=== PATIENT | female | born 1985 | race Caucasian/White ===

== ENCOUNTER 2016-12-06 21:07 | Emergency (ER) | payer OTHER ==
[~2016-12-06] VITALS: Ht 172.7 cm; Wt 98.0 kg
[~2016-12-06 21:07] MED LIST: ACYC1CAP16 PO; CEPH500 PO; NAPR500 PO; PRENTAB50 OR; PROZ20CA11 PO; RANI150 PO; ZOFR4TAB3 SL
[2016-12-06 21:15] VITALS: BP 139/91; PULSE 108; RESP 18; TEMP 98.5; O2SAT 97
[2016-12-06] MEDS ORDERED: ONDANSETRON HCL 4 MG/2 ML VIAL IV PUSH ONE (21:30)
[2016-12-06] MEDS ORDERED: SODIUM CHLOR 0.9% 1000 ML INJ 1,000 ML IV ONE (21:30)
--- NOTE | 2016-12-06 21:32 | PD ---
HPI Chief Complaint: Abdominal Pain Time Seen by Provider: 21:22 Travel History International Travel<30 days: No Contact w/Intl Traveler<30days: No Traveled to known affect area: No History of Present Illness HPI This 31-year-old female says she's been sick for a couple of days. She's been having some vomiting and some epigastric discomfort. She says it feels a lot like when she had gallbladder attacks but she's had a cholecystectomy. She has had a tubal ligation. She was having symptoms throughout the day today. Tonight she urinated and saw blood in the urine. She has a history of urinary tract infections. She has been having a lot of back pain. 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") Neurologic: No Reproductive: No Respiratory: No Immunizations Current: No : 3 Para: 3 Tubal Ligation: Yes Past Surgical History Section: Yes Cholecystectomy: Yes Other Surgery: No Social History Alcohol Use: No Tobacco Use: Yes Substance Use: No Allergies-Medications (Allergen,Severity, Reaction): Coded Allergies: No Known Allergies (Verified , 12/06/16) Reported Meds & Prescriptions Reported Meds & Active Scripts Active Reported Zantac (Ranitidine HCl) 150 Mg Tab 150 Mg PO BID Prozac (Fluoxetine HCl) 20 Mg Cap 20 Mg PO DAILY Review of Systems General / Constitutional: No: Fever, Chills Eyes: No: Diploplia HENT: No: Headaches, Vertigo Cardiovascular: No: Chest Pain or Discomfort, Palpitations Gastrointestinal: Positive: Nausea, Vomiting, Diarrhea, Abdominal Pain Genitourinary: No: Frequency, Dysuria Musculoskeletal: Positive: Myalgias, Pain Skin: No Rash, No Itching Physical Exam Narrative GENERAL: Well-developed female SKIN: Focused skin assessment warm/dry. HEAD: Atraumatic. Normocephalic. EYES: Pupils equal and round. No scleral icterus. No injection or drainage. ENT: No nasal bleeding or discharge. Mucous membranes pink and moist. NECK: Trachea midline. No JVD. CARDIOVASCULAR: Regular rate and rhythm. No murmur appreciated. RESPIRATORY: No accessory muscle use. Clear to auscultation. Breath sounds equal bilaterally. GASTROINTESTINAL: Abdomen soft, non-tender, nondistended. Hepatic and splenic margins not palpable. MUSCULOSKELETAL: No obvious deformities. No clubbing. No cyanosis. No edema. There is some low back tenderness NEUROLOGICAL: Awake and alert. No obvious cranial nerve deficits. Motor grossly within normal limits. Normal speech. PSYCHIATRIC: Appropriate mood and affect; insight and judgment normal. Data Data Last Documented VS Vital Signs Date Time Temp Pulse Resp B/P Pulse Ox O2 Delivery O2 Flow Rate FiO2 12/06/16 21:36 18 12/06/16 21:34 98.5 108 139/91 97 Orders Complete Blood Count With Diff (12/06/16 21:30) Comprehensive Metabolic Panel (12/06/16 21:30) Lipase (12/06/16 21:30) Urinalysis - C+S If Indicated (12/06/16 21:30) Sodium Chlor 0.9% 1000 Ml Inj (Ns 1000 M (12/06/16 21:30) Ondansetron Inj (Zofran Inj) (12/06/16 21:30) Urine Culture (12/06/16 22:00) Labs Laboratory Tests Test 12/06/16 22:00 White Blood Count 6.5 TH/MM3 Red Blood Count 3.68 MIL/MM3 Hemoglobin 10.4 GM/DL Hematocrit 32.3 % Mean Corpuscular Volume 87.8 FL Mean Corpuscular Hemoglobin 28.2 PG Mean Corpuscular Hemoglobin 32.1 % Concent Red Cell Distribution Width 15.7 % Platelet Count 297 TH/MM3 Mean Platelet Volume 7.1 FL Neutrophils (%) (Auto) 47.0 % Lymphocytes (%) (Auto) 34.7 % Monocytes (%) (Auto) 7.3 % Eosinophils (%) (Auto) 9.9 % Basophils (%) (Auto) 1.1 % Neutrophils # (Auto) 3.1 TH/MM3 Lymphocytes # (Auto) 2.2 TH/MM3 Monocytes # (Auto) 0.5 TH/MM3 Eosinophils # (Auto) 0.6 TH/MM3 Basophils # (Auto) 0.1 TH/MM3 CBC Comment DIFF FINAL Differential Comment Urine Color PINK Urine Turbidity CLEAR Urine pH 5.5 Urine Specific [place] 1.029 Urine Protein TRACE mg/dL Urine Glucose (UA) NEG mg/dL Urine Ketones NEG mg/dL Urine Occult Blood NEG Urine Nitrite NEG Urine Bilirubin NEG Urine Leukocyte Esterase NEG Urine RBC 0-3 /hpf Urine WBC 0-2 /hpf Urine Squamous Epithelial > 8 /hpf Cells Urine Bacteria MOD /hpf Microscopic Urinalysis Comment CULTURE INDICATED Sodium Level 139 MEQ/L Potassium Level 4.0 MEQ/L Chloride Level 103 MEQ/L Carbon Dioxide Level 31.2 MEQ/L Anion Gap 5 MEQ/L Blood Urea Nitrogen 20 MG/DL Creatinine 0.82 MG/DL Estimat Glomerular Filtration 82 ML/MIN Rate Random Glucose 77 MG/DL Calcium Level 8.2 MG/DL Total Bilirubin 0.1 MG/DL Aspartate Amino Transf 34 U/L (AST/SGOT) Alanine Aminotransferase 33 U/L (ALT/SGPT) Alkaline Phosphatase 84 U/L Total Protein 7.0 GM/DL Albumin 3.4 GM/DL Lipase 155 U/L [facility] Medical Decision Making Medical Screen Exam Complete: Yes Emergency Medical Condition: Yes Medical Record Reviewed: Yes Differential Diagnosis Differential includes hematuria, renal colic, gastroenteritis, sciatica Narrative Course Urine does not show any blood at this time. Her lab work is unremarkable. She will be treated for sciatica. She has taken Lortab in the past which has been helpful Diagnosis Primary Impression: Acute exacerbation of chronic low back pain Additional Impression: Gastroenteritis Scripts Hydrocodone-Acetaminophen (Lortab)7.5-325 Mg Tab1 Tab PO Q4H PRN (PAIN) #30 TAB Ref 0 Prov:Carlo Main MD 12/06/16 Ondansetron Odt (Zofran Odt)4 Mg Tab4 Mg SL Q6HR PRN (Nausea/Vomiting) #15 TAB Ref 0 Prov:Carlo Main MD 12/06/16 Disposition: 01 DISCHARGE HOME Condition: Stable Carlo Main MD Dec 06, 2016 21:32
[2016-12-06] MEDS ORDERED: ZANT150T2 PO (21:33)
[2016-12-06] MEDS ORDERED: PROZ20CA11 PO (21:33)
[2016-12-06 21:34] VITALS: BP 139/91; PULSE 108; RESP 18; TEMP 98.5; O2SAT 97
[2016-12-06 22:13] LABS: AUTOMATED NEUTROPHIL # 3.1 TH/MM3 (1.8-7.7); BASOPHIL # 0.1 TH/MM3 (0-0.2); BASOPHIL % 1.1 % (0.0-2.0); EOSINOPHIL # 0.6 TH/MM3 (0-0.4); EOSINOPHIL % 9.9 % (0.0-4.0); HEMATOCRIT 32.3 % (35.0-46.0); LYMPH % 34.7 % (9.0-44.0); LYMPHOCYTE # 2.2 TH/MM3 (1.0-4.8); MEAN CELL VOLUME 87.8 FL (80.0-100.0); MEAN CORPUSCULAR HEMOGLOBIN 28.2 PG (27.0-34.0); MEAN CORPUSCULAR HGB CONC 32.1 % (32.0-36.0); MONO % 7.3 % (0.0-8.0); PLATELET COUNT 297 TH/MM3 (150-450); RED BLOOD COUNT 3.68 MIL/MM3 (4.00-5.30); RED CELL DISTRIBUTION WIDTH 15.7 % (11.6-17.2); WHITE BLOOD COUNT 6.5 TH/MM3 (4.0-11.0)
[2016-12-06 22:14] LABS: BLOOD, URINE NEG (NEG); GLUCOSE,URINE NEG (NEG); KETONE, URINE NEG (NEG); NITRITE,URINE NEG (NEG); PH, URINE 5.5 (5.0-8.5)
[2016-12-06 22:17] LABS: HEMO FLAGS DIFF FINAL
[2016-12-06 22:21] LABS: BACTERIA, URINE MOD /hpf; CHLORIDE 103 MEQ/L (98-107); RBC, URINE 0-3 /hpf (0-3); SODIUM (NA) 139 MEQ/L (136-145); SQUAMOUS EPITHELIAL CELL URINE > 8 /hpf (0-5); URINE COLOR PINK (YELLW/STRAW); WBC, URINE 0-2 /hpf (0-5)
[2016-12-06 22:22] LABS: COMMENT (UR) CULTURE INDICATED; CULTURE IF INDICATED CULTURE INDICATED
[2016-12-06 22:25] LABS: ANION GAP 5 MEQ/L (5-15); BICARBONATE 31.2 MEQ/L (21.0-32.0)
[2016-12-06 22:26] LABS: BLOOD UREA NITROGEN 20 MG/DL (7-18)
[2016-12-06 22:28] LABS: ALT (GPT) 33 U/L (10-53); AST (GOT) 34 U/L (15-37); GLOMERULAR FILTRATION RATE 82 ML/MIN (>89)
[2016-12-06 22:30] LABS: TOTAL BILIRUBIN ADULT 0.1 MG/DL (0.2-1.0)
[2016-12-06 22:31] LABS: ALKALINE PHOSPHATASE 84 U/L (45-117)
[2016-12-06] MEDS ORDERED: ACETAMINOPHEN/HYDROcodone 325 MG/5 MG TAB PO ONE (22:45)
[2016-12-06] MEDS ORDERED: ZOFR4TAB3 SL (22:49)
[2016-12-06] MEDS ORDERED: HYDR-3534 PO (22:49)
[2016-12-06 23:15] VITALS: BP 132/80; PULSE 88; RESP 18; O2SAT 98
== END 2016-12-06 23:17 | disposition home or self-care (01) ==
LOC: PHED 21:07
DX: M54.5 Low back pain (principal); G89.29 Other chronic pain; K52.9 Noninfective gastroenteritis and colitis, unspecified; R10.13 Epigastric pain; R31.9 Hematuria, unspecified; Z72.0 Tobacco use; Z87.09 Personal history of other diseases of the respiratory system; Z87.440 Personal history of urinary (tract) infections; Z86.59 Personal history of other mental and behavioral disorders; Z87.39 Personal history of other diseases of the musculoskeletal system and connective tissue
CPT/HCPCS: 80053; 81001; 83690; 85025; 87086; 96361; 96374; 99283; J2405; J7030

== ENCOUNTER 2016-12-21 07:43 | Emergency (ER) | payer OTHER ==
[~2016-12-21] VITALS: Ht 172.7 cm; Wt 92.5 kg
[~2016-12-21 07:43] MED LIST changes: -ACYC1CAP16 PO; -CEPH500 PO; +HYDR-3534 PO; -NAPR500 PO; -PRENTAB50 OR; -RANI150 PO; +ZANT150T2 PO
[2016-12-21 07:49] VITALS: BP 136/90; PULSE 103; RESP 16; TEMP 98.4; O2SAT 98
[2016-12-21] MEDS ORDERED: ALPR.25 PO (08:01)
[2016-12-21] MEDS ORDERED: ACETAMINOPHEN/HYDROcodone 325 MG/5 MG TAB PO ONE (09:00)
[2016-12-21] MEDS ORDERED: CEPH-460 PO (09:18)
[2016-12-21] MEDS ORDERED: OFLO0.3D9 RIGHT EAR (09:18)
[2016-12-21] MEDS ORDERED: BACT800T5 PO (09:18)
--- NOTE | 2016-12-21 09:18 | PD ---
HPI Chief Complaint: Skin Problem Time Seen by Provider: 08:13 Travel History International Travel<30 days: No Contact w/Intl Traveler<30days: No Traveled to known affect area: No History of Present Illness HPI Patient is a 31-year-old female who comes in complaining of a sore to her left leg. She says she has had MRSA infections in the past and is concerned that what it is again. She says she's had it for the past 4 or 5 days. She has not noted any draining there. She says it seems to be getting worse. She says she has a lot of pain to the area. She has not had fever at home. She said she took a tramadol for the pain this morning but it did not help. She also separately complains of pain to her right ear. 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") Neurologic: No Reproductive: No Respiratory: No Immunizations Current: No Influenza Vaccination: Yes ?: Not LMP: 3 DAYS : 3 Para: 3 Tubal Ligation: Yes Past Surgical History Section: Yes Cholecystectomy: Yes Other Surgery: No Social History Alcohol Use: Yes Tobacco Use: Yes (1/2ppd) Substance Use: No Allergies-Medications (Allergen,Severity, Reaction): Coded Allergies: No Known Allergies (Verified , 12/21/16) Reported Meds & Prescriptions Reported Meds & Active Scripts Active Ofloxacin Otic Drops 0.3 % Drops 10 Drop RIGHT EAR DAILY 7 Days Bactrim DS (Sulfamethoxazole-Trimethoprim) 800-160 Mg Tab 1 Tab PO BID Keflex (Cephalexin) 500 Mg Cap 500 Mg PO Q6H 7 Days Reported Xanax (Alprazolam) 0.25 Mg Tab 0.25 Mg PO BID PRN Zantac (Ranitidine HCl) 150 Mg Tab 150 Mg PO BID Prozac (Fluoxetine HCl) 20 Mg Cap 20 Mg PO DAILY Review of Systems General / Constitutional: No: Fever, Chills Eyes: No: Blurred Vision HENT: No: Headaches, Lightheadedness Cardiovascular: No: Chest Pain or Discomfort Respiratory: No: Shortness of Breath Gastrointestinal: No: Nausea, Vomiting Musculoskeletal: Positive: Pain Skin: Positive Lesions Neurologic: No: Weakness, Dizziness Physical Exam Narrative GENERAL: Awake and alert, in no acute distress. SKIN: Focused skin assessment warm/dry. 5 cm circular area of erythema to the inside of the left thigh, with 1 cm area of induration. There is no fluctuance , no drainage. 1 cm area of erythema/scabbing behind the right ear. HEAD: Atraumatic. Normocephalic. EYES: Pupils equal and round. No scleral icterus. No injection or drainage. ENT: Mucous membranes pink and moist. Right posterior a radicular lymph node, tender to palpation. Right ear canal erythematous, TM with normal light reflex , nonerythematous. CARDIOVASCULAR: Regular rate and rhythm. No murmur appreciated. RESPIRATORY: No accessory muscle use. Clear to auscultation. Breath sounds equal bilaterally. MUSCULOSKELETAL: No obvious deformities. No clubbing. No cyanosis. No edema. NEUROLOGICAL: Awake and alert. No obvious cranial nerve deficits. Motor grossly within normal limits. Normal speech. Data Data Last Documented VS Vital Signs Date Time Temp Pulse Resp B/P Pulse Ox O2 Delivery O2 Flow Rate FiO2 12/21/16 07:49 98.4 103 16 136/90 98 Orders Ed Urine Pregnancytest Poc (12/21/16 08:49) Acetamin-Hydrocod 325-5 Mg ([place] 5-325 (12/21/16 09:00) MDM Medical Decision Making Medical Screen Exam Complete: Yes Emergency Medical Condition: Yes Medical Record Reviewed: Yes Differential Diagnosis Cellulitis versus abscess versus otitis externa versus otitis media Narrative Course Patient is a 31-year-old female who comes in complaining of right ear pain and left leg pain due to an abscess. Exam shows an area of erythema, there is an area of induration, but no fluctuance. At this time there does not appear to be any fluid to be drained. Patient will be prescribed antibiotics. Advised to take all of her antibiotics. Advised to return if the symptoms worsen. She is asking for pain medicine to go home with. She was prescribed 30 Lortabs on December 06. I advised her to take these or to take ibuprofen as needed for pain. Her pain should improve as the infection is treated. Her right ear has erythema of the ear canal as well as an enlarged lymph node behind the ear. There appears to be a healing boil behind the right ear which would explain the enlarged lymph node. Patient given prescription for otic drops for otitis externa. Advised follow-up with her doctors. Advised to return to the ED as needed for any worsening symptoms. Diagnosis Primary Impression: Cellulitis Qualified Code: L03.116 - Cellulitis of left lower extremity Additional Impression: Otitis externa Qualified Code: H60.501 - Acute otitis externa of right ear, unspecified type Patient Instructions: Cellulitis (ED), General Instructions, Otitis Externa (ED ) Additional Instructions: Take all of your antibiotics. You can take Ibuprofen as needed for pain. Apply warm compresses. Return to the ED as needed for any worsening symptoms. Scripts Ofloxacin Otic Drops 0.3 % Drops10 Drop RIGHT EAR DAILY 7 Days Ref 0 Prov:Anahi Flannery MD 12/21/16 Sulfamethoxazole-Trimethoprim (Bactrim DS)800-160 Mg Tab1 Tab PO BID #14 TAB Ref 0 Prov:Anahi Flannery MD 12/21/16 Cephalexin (Keflex)500 Mg [id number] Mg PO Q6H 7 Days Ref 0 Prov:Anahi Flannery MD 12/21/16 Disposition: 01 DISCHARGE HOME Condition: Stable Anahi Flannery MD December 21, 2016 09:18
== END 2016-12-21 09:27 | disposition home or self-care (01) ==
LOC: PHED 07:43
DX: L03.116 Cellulitis of left lower limb (principal); H60.91 Unspecified otitis externa, right ear; J45.909 Unspecified asthma, uncomplicated; F41.8 Other specified anxiety disorders; F90.9 Attention-deficit hyperactivity disorder, unspecified type; F17.210 Nicotine dependence, cigarettes, uncomplicated
CPT/HCPCS: 84703; 99282

== ENCOUNTER 2016-12-31 03:07 | Emergency (ER) | payer OTHER ==
[~2016-12-31] VITALS: Ht 172.7 cm; Wt 93.2 kg
[~2016-12-31 03:07] MED LIST changes: +ALPR.25 PO; +BACT800T5 PO; +CEPH-460 PO; -HYDR-3534 PO; +OFLO0.3D9 RIGHT EAR; -ZOFR4TAB3 SL
[2016-12-31 03:16] VITALS: BP 145/105; PULSE 93; RESP 12; TEMP 98.6; O2SAT 100
[2016-12-31] MEDS ORDERED: ACYC400T PO (03:30)
[2016-12-31] MEDS ORDERED: SODIUM CHLOR 0.9% 1000 ML INJ 1,000 ML IV ONE (03:46)
[2016-12-31 03:55] VITALS: BP 140/78; PULSE 87; RESP 16; O2SAT 100
[2016-12-31] MEDS ORDERED: diphenhydrAMINE HCL 50 MG/ML VIAL IVP ONE (04:00)
[2016-12-31] MEDS ORDERED: PROCHLORPERAZINE INJ 10 MG/2 ML VIAL IVP ONE (04:00)
[2016-12-31] MEDS: SODIUM CHLORIDE 0.9% FLUSH 10 ML FLUSH IVF PRN ×2 (04:02→05:09)
--- NOTE | 2016-12-31 04:04 | PD ---
HPI Chief Complaint: Headache Time Seen by Provider: 03:46 Travel History International Travel<30 days: No Contact w/Intl Traveler<30days: No Traveled to known affect area: No History of Present Illness HPI Patient is a 31-year-old female with a history of migraines presents with intense headache which started earlier tonight. Patient initially took some [id number] pain medicine which relieved her headache and she was able to sleep. She states the headache returned and she decided to come in and be seen. She states that this is a fairly severe headache for her. She states that she is also having severe photophobia. She states last time that she was here she had be given Benadryl along with some pain medicine that works for her. She also states that she had a change of insurance status recently in has been without her Topamax and Imitrex. She denies any focal weakness or dizziness or numbness or tingling. 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") Neurologic: No Reproductive: No Respiratory: No Immunizations Current: No Migraines: Yes ?: Not LMP: 12/23/16 : 3 Para: 3 Tubal Ligation: Yes Past Surgical History Section: Yes Cholecystectomy: Yes Other Surgery: No Social History Alcohol Use: Yes (RARE) Tobacco Use: Yes (3-4 CIGS DAILY) Substance Use: No Allergies-Medications (Allergen,Severity, Reaction): Coded Allergies: No Known Allergies (Verified , 12/31/16) Reported Meds & Prescriptions Reported Meds & Active Scripts Active Imitrex (Sumatriptan Succinate) 100 Mg Tab 100 Mg PO ONCE PRN If a satisfactory response has not been obtained at 2 hours, a second dose may be administered Ofloxacin Otic Drops 0.3 % Drops 10 Drop RIGHT EAR DAILY 7 Days Bactrim DS (Sulfamethoxazole-Trimethoprim) 800-160 Mg Tab 1 Tab PO BID Keflex (Cephalexin) 500 Mg Cap 500 Mg PO Q6H 7 Days Reported Acyclovir 400 Mg Tab 400 Mg PO BID Xanax (Alprazolam) 0.25 Mg Tab 0.25 Mg PO BID PRN Prozac (Fluoxetine HCl) 20 Mg Cap 20 Mg PO DAILY Review of Systems Except as stated in HPI: all other systems reviewed are Neg Physical Exam Narrative GENERAL: Well-developed well-nourished, appears uncomfortable. SKIN: Focused skin assessment warm/dry. HEAD: Atraumatic. Normocephalic. EYES: Pupils equal and round. No scleral icterus. No injection or drainage. ENT: No nasal bleeding or discharge. Mucous membranes pink and moist. NECK: Trachea midline. No JVD. CARDIOVASCULAR: Regular rate and rhythm. No murmur appreciated. RESPIRATORY: No accessory muscle use. Clear to auscultation. Breath sounds equal bilaterally. GASTROINTESTINAL: Abdomen soft, non-tender, nondistended. Hepatic and splenic margins not palpable. MUSCULOSKELETAL: No obvious deformities. No clubbing. No cyanosis. No edema. NEUROLOGICAL: Awake and alert and oriented, cranial nerves II through XII are grossly intact and nonfocal, 5 out of 5 strength in all 4 extremity's, pulses motor and sensory intact distally, cerebellar testing negative. No Kernig's or Brudzinski signs.. PSYCHIATRIC: Appropriate mood and affect; insight and judgment normal. Data Data Last Documented VS Vital Signs Date Time Temp Pulse Resp B/P Pulse Ox O2 Delivery O2 Flow Rate FiO2 12/31/16 04:45 80 16 139/79 100 Room Air 12/31/16 03:16 98.6 Orders Ed Urine Pregnancytest Poc (12/31/16 03:12) Complete Blood Count With Diff (12/31/16 03:46) Basic Metabolic Panel (Bmp) (12/31/16 03:46) Ct Brain W/O Iv Contrast(Rout) (12/31/16 03:46) Ecg Monitoring (12/31/16 03:46) Iv Access Insert/Monitor (12/31/16 03:46) Oximetry (12/31/16 03:46) Sodium Chloride 0.9% Flush (Ns Flush) (12/31/16 04:00) Prochlorperazine Inj (Compazine Inj) (12/31/16 04:00) Diphenhydramine Inj (Benadryl Inj) (12/31/16 04:00) Sodium Chlor 0.9% 1000 Ml Inj (Ns 1000 M (12/31/16 03:46) Sumatriptan Inj (Imitrex Inj) (12/31/16 04:45) Ketorolac Inj (Toradol Inj) (12/31/16 05:15) Labs Laboratory Tests Test 12/31/16 03:50 White Blood Count 8.1 TH/MM3 Red Blood Count 3.97 MIL/MM3 Hemoglobin 10.9 GM/DL Hematocrit 34.4 % Mean Corpuscular Volume 86.6 FL Mean Corpuscular Hemoglobin 27.5 PG Mean Corpuscular Hemoglobin 31.8 % Concent Red Cell Distribution Width 15.3 % Platelet Count 382 TH/MM3 Mean Platelet Volume 8.0 FL Neutrophils (%) (Auto) 70.1 % Lymphocytes (%) (Auto) 21.8 % Monocytes (%) (Auto) 3.7 % Eosinophils (%) (Auto) 3.6 % Basophils (%) (Auto) 0.8 % Neutrophils # (Auto) 5.6 TH/MM3 Lymphocytes # (Auto) 1.8 TH/MM3 Monocytes # (Auto) 0.3 TH/MM3 Eosinophils # (Auto) 0.3 TH/MM3 Basophils # (Auto) 0.1 TH/MM3 CBC Comment DIFF FINAL Differential Comment Sodium Level 141 MEQ/L Potassium Level 3.3 MEQ/L Chloride Level 106 MEQ/L Carbon Dioxide Level 27.5 MEQ/L Anion Gap 8 MEQ/L Blood Urea Nitrogen 15 MG/DL Creatinine 0.78 MG/DL Estimat Glomerular Filtration 87 ML/MIN Rate Random Glucose 98 MG/DL Calcium Level 8.8 MG/DL MDM Medical Decision Making Medical Screen Exam Complete: Yes Emergency Medical Condition: Yes Differential Diagnosis Headache, tension, cluster, migraine. Narrative Course Patient was roomed emergency department, she appears uncomfortable. She was initially given Benadryl Compazine. She was sleeping for nursing on reassessment and when awoke she states her headache was still severe. She was given Toradol and Imitrex. On my reassessment the patient sleeping soundly on awakening her she states her headache is still present but better. I discussed with her that since her headache was so severe today I recommended having a CAT scan which is negative, she was recommended to have an LP and after discussions of risks benefits, occasions and alternatives as well as the discussion of the risk of missing a subarachnoid hemorrhage/sentinel bleed she accepts the risks of missing such a bleed and defers having an LP at this time. After discussion the patient states that she does feel well enough to go home at this point. She states that her dad is driving her home. Discussed follow-up with a primary care provider or the [facility]. Diagnosis Primary Impression: Headache Qualified Code: R51 - Nonintractable headache, unspecified chronicity pattern , unspecified headache type Med/Other Pt SpecificInfo: Prescription(s) given Scripts Sumatriptan (Imitrex)100 Mg Apr170 Mg PO ONCE PRN (MIGRAINE HEADACHE) #15 TAB Ref 0 If a satisfactory response has not been obtained at 2 hours, a second dose may be administered Prov:Flako Darnell MD 12/31/16 Disposition: 01 DISCHARGE HOME Condition: Stable Flako Darnell MD December 31, 2016 04:04
[2016-12-31 04:10] VITALS: BP 124/61; PULSE 78; RESP 16; O2SAT 100
[2016-12-31 04:14] LABS: AUTOMATED NEUTROPHIL # 5.6 TH/MM3 (1.8-7.7); BASOPHIL # 0.1 TH/MM3 (0-0.2); BASOPHIL % 0.8 % (0.0-2.0); EOSINOPHIL # 0.3 TH/MM3 (0-0.4); EOSINOPHIL % 3.6 % (0.0-4.0); HEMATOCRIT 34.4 % (35.0-46.0); HEMO FLAGS DIFF FINAL; LYMPH % 21.8 % (9.0-44.0); LYMPHOCYTE # 1.8 TH/MM3 (1.0-4.8); MEAN CELL VOLUME 86.6 FL (80.0-100.0); MEAN CORPUSCULAR HEMOGLOBIN 27.5 PG (27.0-34.0); MEAN CORPUSCULAR HGB CONC 31.8 % (32.0-36.0); MONO % 3.7 % (0.0-8.0); NEUT % 70.1 % (16.0-70.0); PLATELET COUNT 382 TH/MM3 (150-450); RED BLOOD COUNT 3.97 MIL/MM3 (4.00-5.30); RED CELL DISTRIBUTION WIDTH 15.3 % (11.6-17.2); WHITE BLOOD COUNT 8.1 TH/MM3 (4.0-11.0)
[2016-12-31 04:35] LABS: POTASSIUM 3.3 MEQ/L (3.5-5.1)
[2016-12-31 04:38] LABS: BICARBONATE 27.5 MEQ/L (21.0-32.0)
--- NOTE | 2016-12-31 04:41 | RADHPO ---
EXAM DATE/TIME: 12/31/2016 04:22 [place] COMPARISON: No previous studies available for comparison. INDICATIONS : Cephalgia. RADIATION DOSE: 63.44 CTDIvol (mGy) MEDICAL HISTORY : None SURGICAL HISTORY : None. ENCOUNTER: Initial ACUITY: 1 day PAIN SCALE: 9/10 LOCATION: Bilateral frontal TECHNIQUE: Multiple contiguous axial images were obtained of the head. Using automated exposure control and adj ustment of the mA and/or kV according to patient size, radiation dose was kept as low as reasonably a chievable to obtain optimal diagnostic quality images. FINDINGS: CEREBRUM: The ventricles are normal for age. No evidence of midline shift, mass lesion, hemorrhage or acute in farction. No extra-axial fluid collections are seen. POSTERIOR FOSSA: The cerebellum and brainstem are intact. The 4th ventricle is midline. The cerebellopontine angle i s unremarkable. EXTRACRANIAL: The visualized portion of the orbits is intact. Mucosal thickening is noted in the ethmoidal air cell s bilaterally. SKULL: The calvaria is intact. No evidence of skull fracture. CONCLUSION: 1. No acute hemorrhage or mass effect. 2. Mucosal thickening in the ethmoidal air cells. Juan Lazar MD on December 31, 2016 at 4:39 Board Certified Radiologist. This report was verified electronically.
[2016-12-31 04:45] VITALS: BP 139/79; PULSE 80; RESP 16; O2SAT 100
[2016-12-31] MEDS ORDERED: SUMAtriptan INJ 6 MG/0.5 ML VIAL SQ ONE (04:45)
[2016-12-31] MEDS ORDERED: KETOROLAC TROMETHAMINE 30 MG/ML (IVP) VIAL IV PUSH ONE ×2 (04:45→05:15)
[2016-12-31] MEDS ORDERED: IMIT100T PO (05:26)
[2016-12-31 05:35] VITALS: BP 117/65; PULSE 87; RESP 16; O2SAT 100
== END 2016-12-31 05:47 | disposition home or self-care (01) ==
LOC: PHED 03:07
DX: R51 Headache (principal); F90.9 Attention-deficit hyperactivity disorder, unspecified type; J45.909 Unspecified asthma, uncomplicated; F41.9 Anxiety disorder, unspecified; F32.9 Major depressive disorder, single episode, unspecified; F17.210 Nicotine dependence, cigarettes, uncomplicated; Z79.899 Other long term (current) drug therapy
CPT/HCPCS: 70450; 80048; 84703; 85025; 96361; 96372; 96374; 96375; 99284; J0780; J1200; J1885; J3030; J7030